=== PATIENT | male | born 1975 | race Caucasian/White ===

== ENCOUNTER 2017-08-27 02:44 | Emergency (ER) | payer BC ==
[2017-08-27] MEDS ORDERED: SODIUM CHLORIDE 0.9% 1,000 ML IV STA (02:56)
[2017-08-27] MEDS ORDERED: KETOROLAC 30 MG/ML 1 ML VIAL IVP STA ×2 (03:02→05:33)
--- NOTE | 2017-08-27 03:10 | ED ---
General Adult HPI - General Source: patient, RN notes reviewed Mode of arrival: ambulatory Limitations: no limitations <Daron Lee - Last Filed: 08/27/17 03:09> <Baltazar Garner - Last Filed: 08/27/17 05:39> - General Chief complaint: Urogenital Stated complaint: kidney stones Time Seen by Provider: 08/27/17 02:56 - History of Present Illness Initial comments: this a 42-year-old male presents emergency Department chief complaint of left flank pain. Patient states it's been on and off for last month. Patient has a history skidney stones. Patient states pain seems similar. Patient states pain is slightly worse I states he is getting some jabbing pain in his left flank which brought him in tonight. Patient states he has stopped his primary care physician about this and possibly seen a urologist though his primary care physician told him there is not much urologist. Do for him. Patient does have maik hematuria at times. Patient states he does not at this time. Denies any vomiting states she's had intermittent nausea denies any diarrhea or constipation. He has no history of abdominal surgeries. Patient states she's passed multiple stones with no procedures in the past. Denies chest pain or shortness breath denies headache or dizziness. (Daron Lee) - Related Data Previous Rx's Medication Instructions Recorded Ibuprofen 800 mg PO Q6HR PRN #20 tablet 08/27/17 Tamsulosin [Flomax] 0.4 mg PO DAILY #7 cap 08/27/17 Allergies Allergy/AdvReac Type Severity Reaction Status Date / Time No Known Allergies Allergy Verified 08/27/17 02:55 Review of Systems ROS Other: All systems not noted in ROS Statement are negative. <Daron Lee - Last Filed: 08/27/17 03:09> ROS Other: All systems not noted in ROS Statement are negative. <Baltazar Garner - Last Filed: 08/27/17 05:39> ROS Statement: Those systems with pertinent positive or pertinent negative responses have been documented in the HPI. Past Medical History Past Medical History: Hyperlipidemia, Hypertension Additional Past Medical History / Comment(s): kidney stones. History of Any Multi-Drug Resistant Organisms: None Reported Additional Past Surgical History / Comment(s): varicose seal. Past Psychological History: No Psychological Hx Reported Smoking Status: Never smoker Past Alcohol Use History: None Reported, Occasional Past Drug Use History: None Reported <SuziDaron thomas - Last Filed: 08/27/17 03:09> General Exam Limitations: no limitations General appearance: alert, in no apparent distress Head exam: Present: atraumatic, normocephalic, normal inspection Respiratory exam: Present: normal lung sounds bilaterally. Absent: respiratory distress, wheezes, rales, rhonchi, stridor Cardiovascular Exam: Present: regular rate, normal rhythm, normal heart sounds. Absent: systolic murmur, diastolic murmur, rubs, gallop, clicks GI/Abdominal exam: Present: soft, tenderness (mild left-sided), normal bowel sounds. Absent: distended, guarding, rebound, rigid Back exam: Absent: CVA tenderness (R), CVA tenderness (L) Neurological exam: Present: alert, oriented X3, CN II-XII intact Skin exam: Present: warm, dry, intact, normal color. Absent: rash <Daron Lee - Last Filed: 08/27/17 03:09> Vital Signs 08/27/17 08/27/17 02:51 05:07 Temperature 97.9 F 98.8 F Pulse Rate 80 72 Respiratory 16 18 Rate Blood Pressure 172/100 149/85 O2 Sat by Pulse 98 99 Oximetry Medical Decision Making <Daron Lee - Last Filed: 08/27/17 03:09> - Lab Data Result diagrams: 08/27/17 03:00 08/27/17 03:00 - Radiology Data Radiology results: report reviewed (I did review the imaging and reports there is a nonobstructing kidney stone left kidney some nonspecific findings and the doesn't carry which I did ask went to the patient.), image reviewed <Baltazar Garner - Last Filed: 08/27/17 05:39> - Medical Decision Making I did discuss findings with the patient has . The presentation appears be consistent with renal colic he will be discharged on appropriate medication I did explain and the other findings on the CAT scan which she will follow-up with his doctor for also did recommend urology follow-up. (Baltazar Garner) - Lab Data Lab Results 08/27/17 08/27/17 08/27/17 Range/Units 03:00 03:00 03:00 WBC 11.7 H (3.8-10.6) k/uL RBC 4.86 (4.30-5.90) m/uL Hgb 14.2 (13.0-17.5) gm/dL Hct 42.7 (39.0-53.0) % MCV 87.9 (80.0-100.0) fL MCH 29.3 (25.0-35.0) pg MCHC 33.4 (31.0-37.0) g/dL RDW 14.2 (11.5-15.5) % Plt Count 269 (150-450) k/uL Neutrophils % 66 % Lymphocytes % 26 % Monocytes % 5 % Eosinophils % 2 % Basophils % 0 % Neutrophils # 7.7 (1.3-7.7) k/uL Lymphocytes # 3.0 (1.0-4.8) k/uL Monocytes # 0.6 (0-1.0) k/uL Eosinophils # 0.2 (0-0.7) k/uL Basophils # 0.0 (0-0.2) k/uL Sodium 139 (137-145) mmol/L Potassium 4.4 (3.5-5.1) mmol/L Chloride 106 (98-107) mmol/L Carbon Dioxide 19 L (22-30) mmol/L Anion Gap 14 mmol/L BUN 19 (9-20) mg/dL Creatinine 1.00 (0.66-1.25) mg/dL Est GFR (MDRD) Af Amer >60 (>60 ml/min/1.73 sqM) Est GFR (MDRD) Non-Af >60 (>60 ml/min/1.73 sqM) Glucose 135 H (74-99) mg/dL Calcium 9.3 (8.4-10.2) mg/dL Total Bilirubin 0.3 (0.2-1.3) mg/dL AST 26 (17-59) U/L ALT 38 (21-72) U/L Alkaline Phosphatase 78 (38-126) U/L Total Protein 7.3 (6.3-8.2) g/dL Albumin 4.2 (3.5-5.0) g/dL Amylase 36 (30-110) U/L Lipase 143 (23-300) U/L Urine Color Yellow Urine Appearance Cloudy (Clear) Urine pH 5.5 (5.0-8.0) Ur Specific Swisher 1.027 (1.001-1.035) Urine Protein Trace H (Negative) Urine Glucose (UA) Trace H (Negative) Urine Ketones Trace H (Negative) Urine Blood Negative (Negative) Urine Nitrite Negative (Negative) Urine Bilirubin Negative (Negative) Urine Urobilinogen <2.0 (<2.0) mg/dL Ur Leukocyte Esterase Negative (Negative) Urine RBC <1 (0-5) /hpf Urine WBC 1 (0-5) /hpf Ur Squamous Epith Cells <1 (0-4) /hpf Urine Mucus Rare H (None) /hpf Disposition <Daron Lee - Last Filed: 08/27/17 03:09> <Baltazar Garner - Last Filed: 08/27/17 05:39> Clinical Impression: Renal colic on left side, Kidney stone on left side Disposition: HOME SELF-CARE Condition: Good Instructions: Kidney Stones (ED), Renal Colic (ED), Flank Pain (ED) Prescriptions: Ibuprofen 800 mg PO Q6HR PRN #20 tablet PRN Reason: Pain Tamsulosin [Flomax] 0.4 mg PO DAILY #7 cap Referrals: Daron Aguilar DO [Primary Care Provider] - 1-2 days Jorge Hernandez MD [STAFF PHYSICIAN] - 1-2 days
[2017-08-27 03:19] LABS: Basophils % (A) 0 %; CH 30.4; CHCM 34.7; Eosinophils # (A) 0.2 k/uL (0-0.7); Eosinophils % (A) 2 %; HCT 42.7 % (39.0-53.0); HDW 2.61; HGB 14.2 gm/dL (13.0-17.5); Luc # (Auto) 0.12; Luc % (Auto) 1; Lymphocytes % (A) 26 %; MCH 29.3 pg (25.0-35.0); MCHC 33.4 g/dL (31.0-37.0); MCV 87.9 fL (80.0-100.0); Mean Platelet Volume 7.1; Monocytes # (A) 0.6 k/uL (0-1.0); Monocytes % (A) 5 %; Neutrophils # (A) 7.7 k/uL (1.3-7.7); Neutrophils % (A) 66 %; RBC 4.86 m/uL (4.30-5.90); RDW 14.2 % (11.5-15.5); WBC 11.7 k/uL (3.8-10.6); WBC (Perox) 11.71
[2017-08-27 03:25] LABS: Appearance,Urine Cloudy (Clear); Bilirubin,Urine Negative (Negative); Glucose,Urine (UA) Trace (Negative); Ketones,Urine Trace (Negative); Leukocyte Esterase,Urine Negative (Negative); Mucus,Urine Rare /hpf; Nitrite,Urine Negative (Negative); PH, Urine 5.5 (5.0-8.0); Particle Count 1696; Protein,Urine Trace (Negative); RBC,Urine <1 /hpf (0-5); Specific Gravity,Urine 1.027 (1.001-1.035); Squamous Epithelial Cell,Urine <1 /hpf (0-4); UA Billing (MACRO vs. MICRO) MICRO; Urobilinogen,Urine <2.0 mg/dL (<2.0); WBC,Urine 1 /hpf (0-5)
[2017-08-27 03:30] LABS: ALT 38 U/L (21-72); AST 26 U/L (17-59); Alkaline Phosphatase 78 U/L (38-126); Amylase 36 U/L (30-110); Anion Gap 14 mmol/L; Blood Urea Nitrogen 19 mg/dL (9-20); Calcium 9.3 mg/dL (8.4-10.2); Carbon Dioxide 19 mmol/L (22-30); Chloride 106 mmol/L (98-107); Glucose 135 mg/dL (74-99); Non-African American GFR(MDRD) >60 (>60 ml/min/1.73 sqM); Potassium 4.4 mmol/L (3.5-5.1); Sodium 139 mmol/L (137-145); Total Bilirubin 0.3 mg/dL (0.2-1.3); Total Protein 7.3 g/dL (6.3-8.2)
--- NOTE | 2017-08-27 03:57 | XR ---
EXAM: XR Abdomen, 1 View CLINICAL HISTORY: Reason: abdominal pain TECHNIQUE: Frontal supine view of the abdomen/pelvis. 2 images. COMPARISON: No relevant prior studies available. FINDINGS: Gastrointestinal tract: Unremarkable. No dilation. Paucity of small bowel gas, nonspecific. Bones/joints: Unremarkable. IMPRESSION: Negative study.
[2017-08-27 05:08] VITALS: BP 149/85; PULSE 72; RESP 18; TEMP 98.8
--- NOTE | 2017-08-27 05:16 | CT ---
EXAM: CT Abdomen and Pelvis Without Intravenous Contrast CLINICAL HISTORY: Reason: left flank pain TECHNIQUE: Axial computed tomography images of the abdomen and pelvis without intravenous contrast. CTDI is 43.80 mGy and DLP is 2272.80 mGy-cm. This CT exam was performed using one or more of the following dose reduction techniques: automated exposure control, adjustment of the mA and/or kV according to patient size, and/or use of iterative reconstruction technique. COMPARISON: No relevant prior studies available. FINDINGS: Lower thorax: No acute findings. ABDOMEN: Liver: Unremarkable. Gallbladder and bile ducts: Unremarkable. No calcified stones. No ductal dilation. Pancreas: Unremarkable. No ductal dilation. Spleen: Unremarkable. No splenomegaly. Adrenals: Unremarkable. No mass. Kidneys and ureters: Nonobstructing small left renal calculi. 1.7 cm right renal low-density lesion, likely cyst. Stomach and bowel: Unremarkable. No obstruction. No mucosal thickening. Appendix: Normal appendix. PELVIS: Bladder: Unremarkable. No stones. Reproductive: Unremarkable as visualized. ABDOMEN and PELVIS: Intraperitoneal space: Unremarkable. No free air. No significant fluid collection. Bones/joints: L5-S1 degenerative changes. No acute fracture. No dislocation. Soft tissues: Unremarkable. Vasculature: Unremarkable. No abdominal aortic aneurysm. Lymph nodes: Mild haziness of the mid abdominal mesentery with small nodes. IMPRESSION: 1. Nonobstructing small left renal calculi. No obstructing calculus or hydronephrosis . 2. Mild haziness of the mid abdominal mesentery with small nodes. Nonspecific. May represent mesenteric panniculitis which can be idiopathic or associated with infectious, inflammatory or neoplastic process. Correlate and consider follow-up
== END 2017-08-27 05:52 | disposition home or self-care (01) ==
LOC: EC 02:44
DX: N20.0 Calculus of kidney (principal); R31.9 Hematuria, unspecified; Z87.442 Personal history of urinary calculi
CPT/HCPCS: 36415; 80053; 82150; 83690; 85025; 81001; 74000; 74176; 99284; 96374; 96376; 96361; J1885

== ENCOUNTER → 2017-10-01 | Outpatient (CLI) | payer BC ==
--- NOTE | 2017-10-01 09:49 | CT ---
EXAMINATION TYPE: CT abdomen pelvis w con DATE OF EXAM: 10/01/2017 COMPARISON: NONE HISTORY: 42-year-old male LLQ pain, diarrhea TECHNIQUE: Contiguous axial scanning of the abdomen and pelvis following administration of 100 ml Omn ipaque 300 IV contrast. Delayed images through the kidneys and coronal/sagittal reconstructions perf ormed. CT DLP: 1955 mGycm Automated exposure control for dose reduction was used. FINDINGS: Heart is normal size without pericardial effusion. Lung bases clear without pleural effusion. Liver enlarged measuring 22 cm craniocaudal. There seems to be diminished attenuation which can be co rrelated clinically. No biliary ductal dilatation. Portal venous system is patent. Gallbladder, adrenal glands, left kidney, and pancreas appear within normal limits. Spleen measures u pper limits of normal in size at 13.7 cm axial image 19. An inferior splenule is present. No dilated small bowel, free fluid, or free air. Normal appendix. Mild stool right hemicolon. No pericolonic inflammatory change. No mesenteric or retroperitoneal lymphadenopathy. Small mid mesenteric lymph nodes are present but th e haziness seen on 08/27/2017 appears improved. Bladder under distended. Prostate gland is slightly prominent at 3.9 cm wide. No abnormal fluid colle ction in the pelvis. A few prominent external iliac chain lymph nodes on both sides measure up to 1.0 cm and are probably reactive/post inflammatory, unchanged from 08/27/2017. Left hemipelvic phlebolit h. Bones: No osseous destructive process. IMPRESSION: 1. HEPATOMEGALY. THERE SEEMS TO BE DIMINISHED ATTENUATION OF THE LIVER. CORRELATE FOR POSSIBLE HEPATI C STEATOSIS OR HEPATITIS. 2. BORDERLINE SPLEEN SIZE (13.7 CM).
== END | disposition home or self-care (01) ==
LOC: RADCTMAIN 08:50
PROVIDERS: ATTEND Family Medicine
DX: R16.0 Hepatomegaly, not elsewhere classified (principal); K51.919 Ulcerative colitis, unspecified with unspecified complications
CPT/HCPCS: 74177; Q9967

== ENCOUNTER → 2019-11-11 | Outpatient (CLI) | payer OTHER ==
--- NOTE | 2019-11-11 22:41 | XR ---
EXAMINATION TYPE: XR elbow complete LT DATE OF EXAM: 11/11/2019 CLINICAL HISTORY: Pain. TECHNIQUE: Frontal, lateral and oblique images of the left elbow are obtained. COMPARISON: None FINDINGS: There is no acute fracture/dislocation evident in the left elbow. No abnormal fat pad sig ns are seen. The overlying soft tissue appears unremarkable. IMPRESSION: Unremarkable study.
== END | disposition home or self-care (01) ==
LOC: RADXRYALE 16:41
PROVIDERS: ATTEND Physician Assistant Medical
DX: M25.522 Pain in left elbow (principal)

== ENCOUNTER → 2020-09-08 | Outpatient (CLI) | payer OTHER ==
--- NOTE | 2020-09-08 14:20 | CONS ---
CONSULTATION DATE OF SERVICE: 09/08/2020 A 45-year-old gentleman who has been evaluated in the Sleep Center for possible obstructive sleep apnea-hypopnea syndrome. Four years ago he had home sleep apnea test which was negative, but according to patient during the test he stayed only on the belly. His sleep schedule on working days from 10 p.m. to 5:30 - 6 am, on weekends from midnight until 7 a.m. No problems with falling asleep. No TV in bedroom. He usually sleeps on the stomach position and he wakes up from sleep once with nocturia. For the last 5 years patient increased his weight from around 225 pounds to around 280 pounds. No history of hypnagogic hallucinations, sleep paralysis or cataplexy. In the morning, patient wakes up tired, has difficulties paying attention, has problems with memory, concentration, irritability, depression, anxiety, sexual dysfunction. Louise Sleepiness Scale significantly increased to 14. The patient may take a nap around 1 p.m., usually feels refreshed after nap. PAST MEDICAL HISTORY: Positive for hypertension, diabetes, hyperlipidemia, carpal tunnel syndrome, gout. PAST SURGICAL HISTORY: Surgery for carpal tunnel syndrome and bilateral elbow surgery. Both surgeries 2018. MEDICATIONS: Citalopram 40 mg once daily, losartan 100 mg once daily, omeprazole 20 mg once daily, hydrochlorothiazide 25 mg once daily, Allopurinol 300 mg once daily, atorvastatin 20 mg once daily, metformin 1500 mg once daily, fish oral, multivitamins. FAMILY HISTORY: Positive for hypertension, sleep apnea, cancer. REVIEW OF SYSTEMS: Awakenings from sleep, sleepiness during the day. PHYSICAL EXAM: gentleman without distress BP 145/91, HR 80, RR 15, height 5, 8, weight 280, BMI 43.7, temperature 98.1, oxygen saturation at room air 96%. OROPHARYNX: Extremely low position of soft palate, Mallampati 4, wide neck 20-1/4 inches in circumference. ABDOMEN: Obese. LUNGS: Clear to percussion and to auscultation. Good air exchange. No wheezing or rhonchi. HEART: S1, S2 regular. No murmurs, gallops, or rubs. EXTREMITIES: No clubbing or cyanosis. RN MEDICATION: Awake, alert, and oriented X3. Cranial nerves 2 to 7 intact. There is no fasciculation or atrophy. noted. No focal deficits observed. IMPRESSION: 1. Snoring, awakenings from sleep with nocturia, extremely low position of soft palate, wide neck, significant sleepiness, obstructive sleep apnea-hypopnea syndrome. 2. Obesity, BMI 43.7. 3. Hypertension. 4. Diabetes mellitus. 5. History of gout. 6. Hyperlipidemia. 7. Status post bilateral surgery for carpal tunnel syndrome. 8. Status post bilateral elbow surgery. PLAN: 1. Polysomnography for evaluation of patient's breathing during sleep. 2. CPAP/BiPAP titration if sleep study confirms obstructive sleep apnea-hypopnea syndrome. 3. Preferable position during sleep on the side. 4. No driving if patient feels any sleepiness. 5. I will see patient for follow up visit to explain results of testing and following plan. Thank you very much for referring this patient for consultation. Sincerely, Arturo Azul MD, PhD, FAASM Diplomat of [employer] [facility] [place] MMODL / IJN: [id number] /
== END | disposition home or self-care (01) ==
LOC: SLEEP 11:38
PROVIDERS: ATTEND Internal Medicine
DX: G47.33 Obstructive sleep apnea (adult) (pediatric) (principal); E66.9 Obesity, unspecified; I10 Essential (primary) hypertension; E11.9 Type 2 diabetes mellitus without complications; E78.5 Hyperlipidemia, unspecified; Z87.39 Personal history of other diseases of the musculoskeletal system and connective tissue; Z68.41 Body mass index [BMI] 40.0-44.9, adult; Z79.891 Long term (current) use of opiate analgesic; Z79.899 Other long term (current) drug therapy; Z79.84 Long term (current) use of oral hypoglycemic drugs
CPT/HCPCS: 99211

== ENCOUNTER → 2021-04-05 | Outpatient (CLI) | payer OTHER ==
--- NOTE | 2021-04-05 21:50 | SFUN ---
SLEEP CENTER FOLLOW UP NOTE DATE OF SERVICE: 04/05/2021 45-year-old gentleman has been followed in Sleep Center for treatment of obstructive sleep apnea-hypopnea syndrome. In October of 2020 patient had a polysomnogram, which showed moderate obstructive sleep apnea-hypopnea syndrome and then CPAP titration. When patient respiration was normalized subsequently he received the CPAP unit. Today is his first visit after he was started on treatment with CPAP. I explained the results of diagnostic sleep study and titration study to the patient in detail. He is able to use his CPAP equipment every night without significant problem according to him. He feels better with the machine. [place] Sleepiness Scale today is 12. I checked the patient's CPAP unit. CPAP pressure in the range of 5-9, average pressure 8.5, usage 24 out of 30 nights, average 4.4 hours. Leak is 16 L per minute. Apnea- hypopnea index is only 2.0, which is perfect. MEDICATIONS: Citalopram, losartan, omeprazole, hydrochlorothiazide, allopurinol, atorvastatin, metformin, multivitamins. PHYSICAL EXAMINATION: GENERAL: A gentleman without distress. BP 138/93, HR 74, RR 15, weight 277, temperature 98.0, oxygen saturation on room air 97%. Oropharynx low position of soft palate. NECK: Supple, no JVD. Thyroid is not palpable. LUNGS: Clear to percussion and to auscultation. Good air exchange. No wheezing or rhonchi. HEART: S1, S2 regular. No murmurs, gallops, or rubs. ABDOMEN: Obese. Soft and nontender. Bowel sounds are present. No organomegaly appreciated. EXTREMITIES: No clubbing or cyanosis. LINE COOK: Awake, alert, and oriented X3. Cranial nerves 2 to 7 intact. There is no fasciculation or atrophy. noted. No focal deficits observed. IMPRESSION: 1. Obstructive sleep apnea-hypopnea syndrome. Patient demonstrated good compliance with treatment, benefitting from treatment. 2. History of periodic limb movements during the polysomnogram. No complaints at the present time. 3. Mild sleepiness still present. [place] Sleepiness Scale increased to 12. 4. Obesity. 5. Hypertension. 6. Diabetes mellitus. 7. Hyperlipidemia. 8. History of gout. 9. Status post surgical treatment of carpal tunnel syndrome bilaterally. 10.Status post bilateral elbow surgery. 11.No significant periodic limb movements during titration. PLAN: 1. Patient will continue to use PAP equipment every night for the whole night. 2. Sleep hygiene with regular time in bed for at least 7-1/2 to 8 hours. 3. Precautions related to driving. No driving if feeling sleepiness. 4. I will maintain all necessary prescription for PAP supplies including mask, tube, filters. 5. Watching weight. 6. Follow-up visit in 6 months or earlier if patient has any problems. Thank you very much for allowing me to participate in management of your patient. Sincerely, Arturo Azul MD, PhD, FAASM Diplomat of [place] [facility] [place] MMODL / IJN: [id number] /
== END ==
LOC: SLEEP 09:46
PROVIDERS: ATTEND Internal Medicine
DX: G47.33 Obstructive sleep apnea (adult) (pediatric) (principal); G47.61 Periodic limb movement disorder; E66.9 Obesity, unspecified; I10 Essential (primary) hypertension; E11.9 Type 2 diabetes mellitus without complications; E78.5 Hyperlipidemia, unspecified; Z87.39 Personal history of other diseases of the musculoskeletal system and connective tissue; Z98.890 Other specified postprocedural states; Z79.84 Long term (current) use of oral hypoglycemic drugs; Z79.899 Other long term (current) drug therapy

== ENCOUNTER → 2024-12-03 | Outpatient (CLI) | payer BC ==
--- NOTE | 2024-12-03 11:41 | XR ---
EXAMINATION TYPE: XR chest 2V DATE OF EXAM: 12/03/2024 11:35 AM COMPARISON: None TECHNIQUE: XR chest 2V Frontal and lateral views of the chest. CLINICAL INDICATION:Male, 49 years old with history of R059,R0602 COUGH,SOB; FINDINGS: Lungs/Pleura: There is no evidence of pleural effusion, focal consolidation, or pneumothorax. Pulmonary vascularity: Unremarkable. Heart/mediastinum: Cardiomediastinal silhouette is unremarkable. Musculoskeletal: No acute osseous pathology. Multilevel anterior osteophytosis of the thoracic spine. IMPRESSION: No acute cardiopulmonary disease/process. [facility], , 12/03/2024 11:39 AM
== END | disposition home or self-care (01) ==
LOC: RADXRYALE 11:23
PROVIDERS: ATTEND Physician Assistant
DX: R06.02 Shortness of breath (principal); R05.9 Cough, unspecified
CPT/HCPCS: 71046

== ENCOUNTER 2025-04-15 08:01 | Day surgery (SDC) | payer BC ==
[2025-04-14 09:30] VITALS: BMI 38.7
[2025-04-15] MEDS: IV FLUID CONTINUATION 1,000 ML IV ONE (08:26)
[2025-04-15 08:40] VITALS: TEMP 97.9
[2025-04-15] MEDS: LACTATED RINGERS 1,000 ML IV SCH (08:42)
[2025-04-15 08:43] LABS: Glucose,Whole Blood 199 mg/dL (70-110)
[2025-04-15] MEDS ORDERED: PROPOFOL 10 MG/ML 20 ML VIAL IV ONE (08:57)
--- NOTE | 2025-04-15 09:00 | P.GSHP ---
History of Present Illness H&P Date: 04/15/25 Chief Complaint: Colitis Is a 48-year-old male whose had issues with crampy abdominal pain and change in bowel. Patient is today for colonoscopy. Past Medical History Past Medical History: Diabetes Mellitus, GERD/Reflux, Hyperlipidemia, Hypertension, Osteoarthritis (OA) Additional Past Medical History / Comment(s): kidney stones. History of Any Multi-Drug Resistant Organisms: None Reported Additional Past Surgical History / Comment(s): varicose seal. CARPAL AND CUBITAL TUNNEL BILAT , COLONOSCOPY, WISDOM TEETH REMOVED UNDER ANESTHESIA Past Anesthesia/Blood Transfusion Reactions: No Reported Reaction Smoking Status: Never smoker - Past Family History Mother Family Medical History: Cancer Medications and Allergies Home Medications Medication Instructions Recorded Confirmed Type Atorvastatin [Lipitor] 20 mg PO DAILY 03/29/25 04/14/25 History Losartan Potassium [Cozaar] 100 mg PO DAILY 03/29/25 04/14/25 History Meloxicam [Mobic] 7.5 mg PO DAILY 03/29/25 04/14/25 History [place]-3 Acid Ethyl Esters [Lovaza] 2 gm PO BID 03/29/25 04/14/25 History Omeprazole [PriLOSEC] 20 mg PO DAILY 03/29/25 04/14/25 History Testosterone Cypionate 300 mg IM Q14D 03/29/25 04/14/25 History [Depo-Testosterone] Venlafaxine HCl ER [Effexor XR] 75 mg PO DAILY 03/29/25 04/14/25 History allopurinoL [Zyloprim] 300 mg PO DAILY 03/29/25 04/14/25 History busPIRone HCL [Buspar] 7.5 mg PO TID PRN 03/29/25 04/14/25 History hydrOXYzine HCL [Atarax] 50 - 100 mg PO HS 03/29/25 04/14/25 History lamoTRIgine [LaMICtal Xr] 100 mg PO DAILY 03/29/25 04/14/25 History metFORMIN HCL [Glucophage] 500 mg PO BID 03/29/25 04/14/25 History traZODone HCL 150 mg PO HS 03/29/25 04/14/25 History Allergies Allergy/AdvReac Type Severity Reaction Status Date / Time No Known Allergies Allergy Verified 04/15/25 08:27 Surgical - Exam Vital Signs Temp Pulse Resp BP Pulse Ox 97.9 F 86 16 134/97 98 04/15/25 08:30 04/15/25 08:30 04/15/25 08:30 04/15/25 08:30 04/15/25 08:30 - General well developed, well nourished, no distress - Eyes PERRL - ENT normal pinna - Neck no masses - Respiratory normal expansion - Cardiovascular Rhythm: regular - Abdomen Abdomen: soft, non tender Results - Labs Abnormal Lab Results - Last 24 Hours (Table) 04/15/25 Range/Units 08:41 POC Glucose (mg/dL) 199 H (70-110) mg/dL Assessment and Plan Assessment: Will perform colonoscopy.
--- NOTE | 2025-04-15 09:09 | P.OP ---
Date of Procedure: 04/15/25 Preoperative Diagnosis: Colitis Postoperative Diagnosis: Normal colon Procedure(s) Performed: Colonoscopy Anesthesia: MAC Surgeon: Deon Zelaya Pathology: none sent Condition: stable Disposition: PACU Description of Procedure: PROCEDURE: The patient was placed on the endoscopy table in the lateral p osition. Digital rectal examination was performed which revealed no abnormalities. The prostate was symmetrical without nodules. Flexible colonoscope was then placed in the patient's anus and passed throughout the entire colon. The ileocecal valve was visualized. The cecum, ascending, transverse, descending and sigmoid colon were normal. The rectum was normal as well. There were no masses, polyps or diverticula noted in the entire colon. SUMMARY OF FINDINGS: Normal colonoscopy.
[2025-04-15 09:25] LABS: Glucose,Whole Blood 197 mg/dL (70-110)
[2025-04-15 09:30] VITALS: BP 138/95; PULSE 81; RESP 16
== END 2025-04-15 09:48 | disposition home or self-care (01) ==
LOC: ORWHC2ENDO 08:01
PROVIDERS: ATTEND Surgery
DX: K52.9 Noninfective gastroenteritis and colitis, unspecified (principal); E11.9 Type 2 diabetes mellitus without complications; E78.5 Hyperlipidemia, unspecified; I10 Essential (primary) hypertension; Z79.1 Long term (current) use of non-steroidal anti-inflammatories (NSAID); Z79.84 Long term (current) use of oral hypoglycemic drugs
CPT/HCPCS: 45378; J2704

== ENCOUNTER 2025-05-02 17:42 | Emergency (ER) | payer BC ==
[2025-05-02 17:46] VITALS: BP 152/104; PULSE 86; RESP 18; TEMP 98.9
--- NOTE | 2025-05-02 18:22 | ED ---
General Adult HPI - General Chief complaint: Skin/Abscess/Foreign Body Stated complaint: Right Leg Rash Time Seen by Provider: 05/02/25 17:48 Source: patient, RN notes reviewed Mode of arrival: ambulatory Limitations: no limitations - History of Present Illness Initial comments: 49-year-old male presents to the emergency department for evaluation of right leg abscess. Patient states that he noticed this this morning. He denies any drainage from the area. Denies any recent fever, chills. Patient also has a wound on the right lateral leg that is healing from her prior injury. He denies any significant pain from the area. - Related Data Home Medications Medication Instructions Recorded Confirmed Atorvastatin [Lipitor] 20 mg PO DAILY 03/29/25 04/14/25 Losartan Potassium [Cozaar] 100 mg PO DAILY 03/29/25 04/14/25 Meloxicam [Mobic] 7.5 mg PO DAILY 03/29/25 04/14/25 Bishop-3 Acid Ethyl Esters [Lovaza] 2 gm PO BID 03/29/25 04/14/25 Omeprazole [PriLOSEC] 20 mg PO DAILY 03/29/25 04/14/25 Testosterone Cypionate 300 mg IM Q14D 03/29/25 04/14/25 [Depo-Testosterone] Venlafaxine HCl ER [Effexor XR] 75 mg PO DAILY 03/29/25 04/14/25 allopurinoL [Zyloprim] 300 mg PO DAILY 03/29/25 04/14/25 busPIRone HCL [Buspar] 7.5 mg PO TID PRN 03/29/25 04/14/25 hydrOXYzine HCL [Atarax] 50 - 100 mg PO HS 03/29/25 04/14/25 lamoTRIgine [LaMICtal Xr] 100 mg PO DAILY 03/29/25 04/14/25 metFORMIN HCL [Glucophage] 500 mg PO BID 03/29/25 04/14/25 traZODone HCL 150 mg PO HS 03/29/25 04/14/25 Previous Rx's Medication Instructions Recorded Cephalexin [Keflex] 500 mg PO Q6HR #40 cap 05/02/25 Allergies Allergy/AdvReac Type Severity Reaction Status Date / Time No Known Allergies Allergy Verified 05/02/25 17:46 Review of Systems ROS Statement: Those systems with pertinent positive or pertinent negative responses have been documented in the HPI. ROS Other: All systems not noted in ROS Statement are negative. Past Medical History Past Medical History: Hyperlipidemia, Hypertension Additional Past Medical History / Comment(s): kidney stones. History of Any Multi-Drug Resistant Organisms: None Reported Additional Past Surgical History / Comment(s): varicose seal. Past Psychological History: No Psychological Hx Reported Smoking Status: Never smoker Past Alcohol Use History: Occasional Past Drug Use History: None Reported General Exam Limitations: no limitations General appearance: alert, in no apparent distress Head exam: Present: atraumatic, normocephalic, normal inspection Eye exam: Present: normal appearance, PERRL, EOMI. Absent: scleral icterus, conjunctival injection, periorbital swelling ENT exam: Present: normal exam, mucous membranes moist Respiratory exam: Present: normal lung sounds bilaterally. Absent: respiratory distress, wheezes, rales, rhonchi, stridor Cardiovascular Exam: Present: regular rate, normal rhythm, normal heart sounds. Absent: systolic murmur, diastolic murmur, rubs, gallop, clicks Extremities exam: Present: full ROM, normal capillary refill, other (1 cm abscess to the right lateral leg). Absent: tenderness, pedal edema, joint swelling, calf tenderness Neurological exam: Present: alert, oriented X3 Psychiatric exam: Present: normal affect, normal mood Skin exam: Present: warm, dry, intact, normal color. Absent: rash Course Vital Signs 05/02/25 17:44 Temperature 98.9 F Pulse Rate 86 Respiratory 18 Rate Blood Pressure 152/104 O2 Sat by Pulse 96 Oximetry Procedures - Incision & Drainage Consent Obtained: verbal consent Site: lower extremity Size (cm): 1 I&D Cleaning Method: Betadine I&D Drainage Obtained: Pus Culture Obtained?: Yes Patient Tolerated Procedure: well, no complications Medical Decision Making - Medical Decision Making Was pt. sent in by a medical professional or institution (, PA, DIRECTOR EXTERNAL COMMUNICATIONS, urgent care, hospital, or senior living...) When possible be specific @ -No Did you speak to anyone other than the patient for history (EMS, parent, family, police, friend...)? What history was obtained from this source @ -No Did you review nursing and triage notes (agree or disagree)? Why? @ -I reviewed and agree with nursing and triage notes Were old charts reviewed (outside hosp., previous admission, EMS record, old EKG, old radiological studies, urgent care reports/EKG's, senior living records)? Report findings @ -No old charts were reviewed Differential Diagnosis (chest pain, altered mental status, abdominal pain women, abdominal pain men, vaginal bleeding, weakness, fever, dyspnea, syncope, headache, dizziness, GI bleed, back pain, seizure, CVA, palpatations, mental health, musculoskeletal)? @ -Cellulitis, abscess, pustule, this this is not all-inclusive EKG interpreted by me (3pts min.). @ -None X-rays interpreted by me (1pt min.). @ -None done CT interpreted by me (1pt min.). @ -None done U/S interpreted by me (1pt. min.). @ -None done What testing was considered but not performed or refused? (CT, X-rays, U/S, labs)? Why? @ -None What meds were considered but not given or refused? Why? @ -None Did you discuss the management of the patient with other professionals (professionals i.e. , PA, DIRECTOR EXTERNAL COMMUNICATIONS, lab, RT, psych nurse, social work job titles, impregnator helper, teacher, supply officer, case specialist)? Give summary @ -No Was smoking cessation discussed for >3mins.? @ -No Was critical care preformed (if so, how long)? @ -No Were there social determinants of health that impacted care today? How? (Homelessness, low income, unemployed, alcoholism, drug addiction, transportation, low edu. Level, literacy, decrease access to med. care, [facility], rehab)? @ -No Was there de-escalation of care discussed even if they declined (Discuss DNR or withdrawal of care, Hospice)? DNR status @ -No What co-morbidities impacted this encounter? (DM, HTN, Smoking, COPD, CAD, Cancer, CVA, ARF, Chemo, Hep., AIDS, mental health diagnosis, sleep apnea, morbid obesity)? @ -None Was patient admitted / discharged? Hospital course, mention meds given and route, prescriptions, significant lab abnormalities, going to OR and other pertinent info. @ -Discharge. Patient presented emergency department for evaluation of abscess to his right leg. Patient has a small 1 cm abscess to his leg. This was drained with a needle. A wound culture was obtained. Patient will be started on antibiotics. Patient is understanding agreeable discharge plan. Strict return precautions discussed. Patient stable at time of discharge. Case discussed with Dr. Arenas Undiagnosed new problem with uncertain prognosis? @ -No Drug Therapy requiring intensive monitoring for toxicity (Heparin, Nitro, Insulin, Cardizem)? @ -No Were any procedures done? @ -Abscess drainage Diagnosis/symptom? @ -Abscess Acute, or Chronic, or Acute on Chronic? @ -Acute Uncomplicated (without systemic symptoms) or Complicated (systemic symptoms)? @ -Uncomplicated Side effects of treatment? @ -No Exacerbation, Progression, or Severe Exacerbation? @ -No Poses a threat to life or bodily function? How? (Chest pain, [place], [place], pneumonia, PE, COPD, DKA, ARF, appy, cholecystitis, CVA, Diverticulitis, Homicidal, Suicidal, threat to staff... and all critical care pts) @ -No Disposition Clinical Impression: Abscess Disposition: HOME SELF-CARE Condition: Stable Instructions (If sedation given, give patient instructions): Abscess (ED) Additional Instructions: Please roller picker your antibiotics and take to completion. Follow up with your doctor. Return to the emergency department for new or worsening symptoms as we discussed. Prescriptions: Cephalexin [Keflex] 500 mg PO Q6HR #40 cap Is patient prescribed a controlled substance at d/c from ED?: No Referrals: Daron Aguilar DO [Primary Care Provider] - 1-2 days
== END 2025-05-02 18:47 | disposition home or self-care (01) ==
LOC: EC 17:42
DX: L02.415 Cutaneous abscess of right lower limb (principal)
CPT/HCPCS: 10060; 87070; 87075; 87205; 99282